=== PATIENT | female | born 1985 | race Two or more races ===

== ENCOUNTER 2017-04-03 14:16 | Emergency (ER) | payer MEDICAID, OTHER ==
[~2017-04-03] VITALS: Ht 162.6 cm; Wt 49.9 kg
--- NOTE | 2017-04-03 15:02 | NUR ---
Patient discharged to home in stable conditon. Written and verbal after care instructions given, prescriptions provided as ordered by MD. Patient verbalizes understanding of instructions. No further questions or concerns noted prior on leaving the ED.
[2017-04-03 15:03] VITALS: BP 110/69
== END 2017-04-03 15:04 | disposition home or self-care (01) ==
LOC: ER 14:17
DX: M26.602 Left temporomandibular joint disorder, unspecified (principal); F10.20 Alcohol dependence, uncomplicated
CPT/HCPCS: 99283; A4663

== ENCOUNTER 2024-11-06 12:34 | Emergency (ER) | payer OTHER ==
[~2024-11-06] VITALS: Ht 177.8 cm; Wt 54.9 kg
[2024-11-06 13:35] LABS: *BILIRUBIN,URIN NEGATIVE (NEGATIVE); *BLOOD, URINE NEGATIVE (NEGATIVE); *CLARITY,URINE CLEAR (CLEAR); *COLOR,URINE ORANGE (YELLOW); *KETONES,URINE NEGATIVE (NEGATIVE); *PROTEIN,URINE NEGATIVE (NEGATIVE); *UROBILINOGEN,URINE 0.2 E.U./dl (NORMAL); LEUKOCYTE ESTERASE ,URINE NEGATIVE (NEGATIVE); NITRITE, URINE POSITIVE (NEGATIVE); UGLUCOSE TRACE (NEGATIVE); WBC,URINE 0-3 /HPF (0-3)
[2024-11-06 13:36] LABS: BACTERIA,URINE MODERATE /HPF (NONE SEEN); SQUAMOUS EPITHELIAL CELL,UR FEW /HPF (NONE SEEN)
[2024-11-06 13:37] LABS: *URINE HCG, QUAL NEGATIVE (NEGATIVE)
[2024-11-06] MEDS ORDERED: PHEN-705 PO (13:58)
[2024-11-06] MEDS ORDERED: DOXY100C5 PO (13:58)
[2024-11-06] MEDS ORDERED: DOXYCYCLINE HYCLATE 100 MG TABLET PO ONE (14:00)
[2024-11-06] MEDS ORDERED: PHENAZOPYRIDINE HCL 100 MG TABLET PO ONE (14:00)
[2024-11-06] MEDS ORDERED: DOXYCYCLINE HYCLATE 100 MG TABLET ONE (14:06)
[2024-11-06] MEDS ORDERED: PHENAZOPYRIDINE HCL 100 MG TABLET ONE (14:06)
[2024-11-06 14:11] VITALS: BP 119/61; O2SAT 99
[2024-11-08 13:12] LABS: *CHLAMYDIA NAA Negative (Negative); *GC NAA Negative (Negative); *TRIC.VAG. NAA Negative (Negative)
== END 2024-11-06 14:13 | disposition home or self-care (01) ==
LOC: ER 12:34
DX: N39.0 Urinary tract infection, site not specified (principal)
CPT/HCPCS: 84703; 87491; A4606; A4663